=== PATIENT | male | born 1995 | race Hispanic/Latino ===

== ENCOUNTER 2024-05-23 01:17 | Emergency (ER) | payer BC ==
[2024-05-23] MEDS ORDERED: IPRATROPIUM BROM 0.5MG/2.5ML ONE (01:48)
[2024-05-23] MEDS ORDERED: ALBUTEROL 2.5 MG/3 ML NEB SOL ONE (01:48)
[2024-05-23] MEDS ORDERED: IBUPROFEN 400 MG TAB ONE (02:13)
[2024-05-23] MEDS ORDERED: predniSONE 20 MG TAB ONE (02:13)
--- NOTE | 2024-05-23 03:45 | RAD REPORT ---
EXAM: XR Chest, 1 View CLINICAL HISTORY: The patient is 29 years old and is Male; CONGESTION; Bed Name: 8; TECHNIQUE: Frontal view of the chest. COMPARISON: No relevant prior studies available. FINDINGS: Lungs: No acute infiltrate. Pleural space: No pleural effusion or pneumothorax. Heart: No cardiomegaly. Mediastinum: Normal contours. Bones/joints: Unremarkable. IMPRESSION: No acute findings. Electronically signed by: Yareli Aburto MD 05/23/2024 03:12 AM [facility] Due to temporary technical issues with the PACS/Twit[employer] reporting system, reports are being jacqui d by the in-house radiologist without review as a courtesy to ensure prompt reporting the interpreting radiologist is fully responsible for the content of the report. Transcribed Date/Time: 05/23/2024 3:45 AM
--- NOTE | 2024-05-23 04:12 | EDPHYS ---
Physician Documentation [facility] Name: Deric Raman Age: 29 yrs Sex: Male : 1995 Arrival Date: 05/23/2024 Time: 01:17 Bed 8 Private MD: ED Physician Bryson Fishman HPI: 05/23 01:28 This 29 yrs old Male presents to ER via Unassigned with complaints of Chest sp4 Congestion, Wheezing. 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 He reports he was exposed to [employer]rock dust. . Historical: - Allergies: 01:49 No Known Allergies; ha1 - PMHx: 01:49 Bronchitis; ha1 - Immunization history:: Adult Immunizations. - Infectious Disease History:: Denies. - Social history:: Smoking status: Patient denies any tobacco usage or history of. - Family history:: not pertinent. ROS: 20:00 Constitutional: Negative for fever, chills, and weight loss, positive for cough, sp4 positive dyspnea, positive wheezing 20:00 All other systems are negative, Exam: 20:00 Constitutional: This is a well developed, well nourished patient who is awake, alert, sp4 and in no acute distress. Head/Face: Normocephalic, atraumatic. Eyes: Pupils equal round and reactive to light, extra-ocular motions intact. Lids and lashes normal. Conjunctiva and sclera are not injected. Cornea within normal limits. Periorbital areas with no swelling, redness, or edema. ENT: Nares patent. No nasal discharge, no septal abnormalities noted. Tympanic membranes are normal and external auditory canals are clear. Oropharynx with no redness, swelling, or masses, exudates, or evidence of obstruction, uvula midline. Mucous membranes moist. Neck: Trachea midline, no thyromegaly or masses palpated, and no cervical lymphadenopathy. Supple, full range of motion without nuchal rigidity, or vertebral point tenderness. Chest/axilla: Normal chest wall appearance and motion. Nontender with no deformity. No lesions are appreciated. Cardiovascular: Regular rate and rhythm with a normal S1 and S2. No gallops, murmurs, or rubs. Normal PMI, no JVD. No pulse deficits. Respiratory: Lungs have equal breath sounds bilaterally, No rales, rhonchi or noted. No increased work of breathing, no retractions or nasal flaring. There is mild right-sided expiratory wheezing on exam Abdomen/GI: Soft, with normal bowel sounds. No distension or tympany. No guarding or rebound. No evidence of tenderness throughout. Back: No spinal tenderness. No costovertebral tenderness. Skin: Warm, dry with normal turgor. Normal color with no rashes, no lesions, and no evidence of cellulitis. MS/ Extremity: Pulses equal, no cyanosis. Neurovascular intact. Full, normal range of motion. Neuro: Awake and alert, GCS 15, oriented to person, place, time, and situation. Cranial nerves II-XII grossly intact. Motor strength 5/5 in all extremities. Sensory grossly intact. Vital Signs: 01:35 BP 144 / 76; Pulse 73; Resp 20 S; Temp 97.8; Pulse Ox 99% on R/A; Weight 121.11 kg; ha1 Height 6 ft. 0 in. ; 01:52 BP 144 / 76; Pulse 71; Resp 18; Temp 97.8; Pulse Ox 99% ; Pain 0/10; bm8 03:00 BP 146 / 68; Pulse 80; Resp 18; Temp 97.8; Pulse Ox 100% ; Pain 0/10; bm8 04:19 BP 114 / 91; Pulse 86; Resp 17; Temp 97.8; Pulse Ox 97% on R/A; Pain 0/10; bm8 01:35 Body Mass Index 36.21 (121.11 kg, 182.88 cm) [facility] 01:52 Pain Scale: Adult bm8 03:00 Pain Scale: Adult bm8 04:19 Pain Scale: Adult bm8 Magdaleno Coma Score: 01:52 Eye Response: spontaneous(4). Motor Response: obeys commands(6). Verbal Response: bm8 oriented(5). Total: 15. 03:00 Eye Response: spontaneous(4). Motor Response: obeys commands(6). Verbal Response: bm8 oriented(5). Total: 15. 04:19 Eye Response: spontaneous(4). Motor Response: obeys commands(6). Verbal Response: bm8 oriented(5). Total: 15. 20:00 Eye Response: spontaneous(4). Motor Response: obeys commands(6). Verbal Response: sp4 oriented(5). Total: 15. MDM: 02:03 Medical Screening Exam initiated sp4 04:10 ED course: EXAM: XR Chest, 1 View CLINICAL HISTORY: The patient is 29 years old and is sp4 Male; CONGESTION; Bed Name: 8; TECHNIQUE: Frontal view of the chest. COMPARISON: No relevant prior studies available. FINDINGS: Lungs: No acute infiltrate. Pleural space: No pleural effusion or pneumothorax. Heart: No cardiomegaly. Mediastinum: Normal contours. Bones/joints: Unremarkable. IMPRESSION: No acute findings. 20:02 Differential diagnosis: Anxiety Reaction asthma, Bronchitis Psychogenic. Data reviewed: sp4 vital signs, nurses notes, lab test result(s), radiologic studies, plain films. ED course: Patient completely improved after nebulized treatment. Stable for discharge home.. 05/23 01:29 Order name: Influenza Screen (a \T\ B); Complete Time: 03:58 sp4 05/23 01:55 Order name: Chest Single View XRAY bm8 Administered Medications: 01:55 Drug: DuoNeb Nebulize (2.5 mg - 0.5 mg) 3 ml Nebulizer once Route: Nebulizer; bm8 02:52 Follow up: Response: No adverse reaction bm8 02:15 Drug: predniSONE PO 60 mg PO once Route: PO; bm8 02:51 Follow up: Response: No adverse reaction bm8 02:15 Drug: Ibuprofen PO 800 mg PO once Route: PO; bm8 02:51 Follow up: Response: No adverse reaction bm8 Disposition: 20:03 Chart complete. sp4 Disposition Summary: 05/23/24 04:11 Discharge Ordered Notes: Location: Home sp4 Problem: new sp4 Symptoms: have improved sp4 Condition: Stable sp4 Diagnosis - Acute wheezing, acute chemical pneumonitis sp4 Followup: sp4 - With: Private Physician - When: 7 - 10 days - Reason: Recheck today's complaints Discharge Instructions: - Discharge Summary Sheet sp4 - How to Use a Nebulizer, Adult sp4 Forms: - Patient Portal Instructions sp4 Prescriptions: - miscellaneous medical supply - nebulize 1 unit NEBULIZATION route as directed Dispense 1 Nebulizer with Adult sp4 Mask - Use as directed; 1 unit; Refills: 0, Product Selection Permitted - Albuterol Sulfate 2.5 mg /3 mL (0.083 %) Inhalation Solution for Nebulization - inhale 1 unit NEBULIZATION route every 4 hours As needed PRN wheezing; 50 unit; sp4 Refills: 0, Product Selection Permitted - Prednisone 20 mg Oral Tablet - take 2 tablets ORAL route once daily for 5 days; 10 tablet; Refills: 0, Product sp4 Selection Permitted Signatures: Dispatcher [employer] EDMS Leyla Crow, RN RN ha1 Bryson Fishman MD MD sp4 Luciano Zurita RN RN bm8 Corrections: (The following items were deleted from the chart) 01:56 01:56 Chest Single View+RAD.RAD.BRZ ordered. EDMS EDMS 02:17 02:12 Chest Single View+RAD.RAD.BRZ ordered. EDMS EDMS
--- NOTE | 2024-05-23 04:12 | ER ---
Nurse's Notes [facility] Name: Deric Raman Age: 29 yrs Sex: Male : 1995 Arrival Date: 05/23/2024 Time: 01:17 Bed 8 Private MD: Diagnosis: Acute wheezing, acute chemical pneumonitis Presentation: 05/23 01:35 Chief complaint: Patient states: SHORTNESS OF BREATH, WHEEZING, DIFFICULTY BREATHING, I ha1 FEEL THAT EVERYTHING STARTED SINCE YESTERDAY. AFTER A HOME CONSTRUCTION. 01:35 Coronavirus screen: Vaccine status: Patient reports being unvaccinated. Ebola Screen: ha1 No symptoms or risks identified at this time. Initial Sepsis Screen: Does the patient meet any 2 criteria? No. Patient's initial sepsis screen is negative. Does the patient have a suspected source of infection? No. Patient's initial sepsis screen is negative. Risk Assessment: Do you want to hurt yourself or someone else? Patient reports no desire to harm self or others. Onset of symptoms was May 23, 2024. 01:35 Method Of Arrival: Ambulatory ha1 01:35 Acuity: RONNIE 4 ha1 Historical: - Allergies: 01:49 No Known Allergies; ha1 - PMHx: 01:49 Bronchitis; ha1 - Immunization history:: Adult Immunizations. - Infectious Disease History:: Denies. - Social history:: Smoking status: Patient denies any tobacco usage or history of. - Family history:: not pertinent. Screenin:52 [facility] ED Fall Risk Assessment (Adult) History of falling in the last 3 months, bm8 including since admission No falls in past 3 months (0 pts) Confusion or Disorientation No (0 pts) Intoxicated or Sedated No (0 pts) Impaired Gait No (0 pts) Mobility Assist Device Used No (0 pt) Altered Elimination No (0 pt) Score/Fall Risk Level 0 - 2 = Low Risk Oriented to surroundings, Maintained a safe environment, Educated pt \T\ family on fall prevention, incl call for assistance when getting out of bed, Assessed \T\ reinforced patient's understanding of fall precautions, Hourly rounding (assess needs \T\ fall precautionary measures) done, Used ambulatory aids as needed (educated on \T\ assisted with), Used gait belt as appropriate. Abuse screen: Denies threats or abuse. Nutritional screening: No deficits noted. Tuberculosis screening: No symptoms or risk factors identified. Assessment: 01:52 Reassessment: Patient appears in no apparent distress at this time. Patient and/or bm8 family updated on plan of care and expected duration. Pain level reassessed. Patient is alert, oriented x 3, equal unlabored respirations, skin warm/dry/pink. General: Appears in no apparent distress. comfortable, Behavior is calm, cooperative, appropriate for age. Pain: Denies pain. Neuro: Level of Consciousness is awake, alert, obeys commands, Oriented to person, place, time, situation, Appropriate for age. Cardiovascular: Denies chest pain. Respiratory: Reports shortness of breath at rest labored breathing Airway is patent Trachea midline Respiratory effort is even, unlabored, Respiratory pattern is regular, symmetrical, Breath sounds with wheezes in right middle lobe, left lower lobe, right lower lobe, left posterior lower lobe, right posterior middle lobe and right posterior lower lobe the patient has mild shortness of breath. GI: No signs and/or symptoms were reported involving the gastrointestinal system. : No signs and/or symptoms were reported regarding the genitourinary system. EENT: No signs and/or symptoms were reported regarding the EENT system. Derm: No signs and/or symptoms reported regarding the dermatologic system. Musculoskeletal: No signs and/or symptoms reported regarding the musculoskeletal system. 03:00 Reassessment: Patient appears in no apparent distress at this time. Patient and/or bm8 family updated on plan of care and expected duration. Pain level reassessed. Patient is alert, oriented x 3, equal unlabored respirations, skin warm/dry/pink. Patient states feeling better. Patient states symptoms have improved. 04:19 Reassessment: Patient appears in no apparent distress at this time. No changes from bm8 previously documented assessment. Patient and/or family updated on plan of care and expected duration. Pain level reassessed. Patient is alert, oriented x 3, equal unlabored respirations, skin warm/dry/pink. Vital Signs: 01:35 BP 144 / 76; Pulse 73; Resp 20 S; Temp 97.8; Pulse Ox 99% on R/A; Weight 121.11 kg; ha1 Height 6 ft. 0 in. ; 01:52 BP 144 / 76; Pulse 71; Resp 18; Temp 97.8; Pulse Ox 99% ; Pain 0/10; bm8 03:00 BP 146 / 68; Pulse 80; Resp 18; Temp 97.8; Pulse Ox 100% ; Pain 0/10; bm8 04:19 BP 114 / 91; Pulse 86; Resp 17; Temp 97.8; Pulse Ox 97% on R/A; Pain 0/10; bm8 01:35 Body Mass Index 36.21 (121.11 kg, 182.88 cm) ha1 01:52 Pain Scale: Adult bm8 03:00 Pain Scale: Adult bm8 04:19 Pain Scale: Adult bm8 Magdaleno Coma Score: 01:52 Eye Response: spontaneous(4). Motor Response: obeys commands(6). Verbal Response: bm8 oriented(5). Total: 15. 03:00 Eye Response: spontaneous(4). Motor Response: obeys commands(6). Verbal Response: bm8 oriented(5). Total: 15. 04:19 Eye Response: spontaneous(4). Motor Response: obeys commands(6). Verbal Response: bm8 oriented(5). Total: 15. 20:00 Eye Response: spontaneous(4). Motor Response: obeys commands(6). Verbal Response: sp4 oriented(5). Total: 15. ED Course: 01:21 Patient arrived in ED. gm2 01:28 Bryson Fishman MD is Attending Physician. sp4 01:39 Luciano Zurita, RN is Primary Nurse. bm8 01:42 Flu and/or RSV swab sent to lab. vk 01:49 Triage completed. ha1 01:52 No provider procedures requiring assistance completed. Oxygen administered via a bm8 nebulizer mask. Response to oxygen therapy: symptoms improved. 01:52 Patient has correct armband on for positive identification. Bed in low position. Call bm8 light in reach. Client placed on continuous cardiac and pulse oximetry monitoring. NIBP monitoring applied. Pulse ox on. NIBP on. Door closed. Noise minimized. Warm blanket given. Pillow given. Verbal reassurance given. Head of bed. 01:52 Arm band placed on. bm8 02:19 Chest Single View XRAY In Process Unspecified. EDMS 02:19 X-ray completed. Portable x-ray completed in exam room. Patient tolerated procedure mh1 well. 03:00 Patient did not have IV access during this emergency room visit. bm8 03:00 Provided Education on: post er care. bm8 Administered Medications: 01:55 Drug: DuoNeb Nebulize (2.5 mg - 0.5 mg) 3 ml Nebulizer once Route: Nebulizer; bm8 02:52 Follow up: Response: No adverse reaction bm8 02:15 Drug: predniSONE PO 60 mg PO once Route: PO; bm8 02:51 Follow up: Response: No adverse reaction bm8 02:15 Drug: Ibuprofen PO 800 mg PO once Route: PO; bm8 02:51 Follow up: Response: No adverse reaction bm8 Medication: 01:52 VIS not applicable for this client. bm8 Outcome: 04:11 Discharge ordered by . sp4 04:19 Discharged to home ambulatory, bm8 04:19 Condition: stable 04:19 Discharge instructions given to patient, family, Instructed on discharge instructions, follow up and referral plans. no drinking with medication, no driving heavy equipment, medication usage, safety practices, Demonstrated understanding of instructions, follow-up care, medications, Prescriptions given X 3, 04:20 Patient left the ED. bm8 Signatures: Dispatcher [employer] EDMS Etelvina Duarte 1 Leyla Crow, RN RN ha1 Bryson Fishman MD MD sp4 Daija Ogden Vivian vk McDonald, Brad, RN RN bm8
[2024-05-23 07:25] VITALS: TEMP 97.8
[2024-05-23 07:29] VITALS: BP 114/91; O2SAT 97
== END 2024-05-23 04:20 | disposition home or self-care (01) ==
LOC: ER 01:17
DX: J68.0 Bronchitis and pneumonitis due to chemicals, gases, fumes and vapors (principal)
CPT/HCPCS: 87804 ×2; 71045; 99285; J7512; J7613; J7644